=== PATIENT | male | born 1955 | race Caucasian/White ===

== ENCOUNTER 2017-09-10 19:56 | Inpatient (IN) | payer OTHER ==
[~2017-09-10] VITALS: Ht 182.9 cm; Wt 93.4 kg
[2017-09-10] MEDS ORDERED: METFORMIN PO (20:07)
[2017-09-10 20:08] VITALS: BP 139/94
[2017-09-10 20:54] LABS: HEMATOCRIT 43.5 % (42.0-52.0); HEMOGLOBIN 14.9 gm/dL (14.0-18.0); MCH 30.1 pg (26.0-34.0); MCHC 34.4 g/dL (28.0-37.0); MCV 87.7 fL (80.0-100.0); MPV 8.6 fl. (7.2-11.1); NUCLEATED RBCS 0 /100WBC; PLATELET COUNT* 202 thou/uL (150-400); RBC 4.96 mil/uL (4.50-6.00); RDW-CV 13.2 % (10.5-14.5); WBC 20.4 thou/uL (4.0-11.0)
[2017-09-10 20:56] LABS: CALCIUM 9.2 mg/dL (8.5-10.1); CREATININE 1.7 mg/dL (0.6-1.3); POTASSIUM 3.7 mmol/L (3.5-5.1)
[2017-09-10 21:01] LABS: ALBUMIN 4.2 g/dL (3.4-5.0); TOTAL BILIRUBIN 0.6 mg/dL (<0.1-1.0); TOTAL PROTEIN 7.2 g/dL (6.4-8.2)
[2017-09-10 21:11] LABS: URINE BILIRUBIN NEGATIVE (Negative); URINE BLOOD 3+ (Negative); URINE CLARITY CLEAR; URINE COLOR YELLOW; URINE GLUCOSE-RANDOM 1+ (Negative); URINE KETONES 2+ (Negative); URINE LEUKOCYTES-REFLEX NEGATIVE (Negative); URINE NITRITE-REFLEX NEGATIVE (Negative); URINE PROTEIN 2+ (Negative); URINE UROBILINOGEN 0.2 E.U./dl (0.2-1.0)
[2017-09-10 21:19] LABS: MUCUS 4-6 Moderate strn/LPF (None Seen); SQUAMOUS >10 Many /LPF (0-3)
[2017-09-10 21:20] LABS: CRYSTALS None Seen /LPF (None Seen); HYALINE CASTS 0-3 Few /LPF (None Seen); URINE RBC >20 Many /HPF (0-2)
[2017-09-10 21:21] LABS: BACTERIA-REFLEX None Seen /HPF (None Seen); URINE WBC-REFLEX 0-5 Rare /HPF (0-5)
[2017-09-10 21:27] LABS: INFLUENZA A ANTIGEN None Detected (None Detect); INFLUENZA B ANTIGEN None Detected (None Detect)
[2017-09-10 21:30] LABS: ABSOLUTE LYMPHOCYTES 1.6 thou/uL (0.8-5.3); ABSOLUTE MONOCYTES 0.8 thou/uL (0.0-1.2)
[2017-09-10 21:31] LABS: PLATELET ESTIMATE ADEQUATE
[2017-09-11 01:39] VITALS: BP 163/101
[2017-09-11 01:55] VITALS: BP 145/72
[2017-09-11 04:31] LABS: HEMATOCRIT 40.2 % (42.0-52.0); HEMOGLOBIN 13.7 gm/dL (14.0-18.0); MCV 88.1 fL (80.0-100.0); MPV 8.2 fl. (7.2-11.1); RBC 4.56 mil/uL (4.50-6.00); RDW-CV 13.2 % (10.5-14.5); WBC 15.7 thou/uL (4.0-11.0)
[2017-09-11 04:52] LABS: CALCIUM 8.4 mg/dL (8.5-10.1); CREATININE 1.8 mg/dL (0.6-1.3)
--- NOTE | 2017-09-11 08:14 | NUR ---
Pt arrived from ED to floor at 0200. Shortly after arrival, he c/o increasing pain to L flank rating 8/10. Medicated with fentanyl per order, and appeared to be asleep when checked on 30-45 minutes later. On clear liquid diet. States takes only Metformin and generic form of Lipitor at home. VSS. Will continue to monitor.
[2017-09-11 08:56] LABS: HEMATOCRIT 39.7 % (42.0-52.0); HEMOGLOBIN 13.6 gm/dL (14.0-18.0)
[2017-09-11 09:30] VITALS: BP 129/73
[2017-09-11 11:36] VITALS: BP 143/80
[2017-09-11 15:13] LABS: HEMOGLOBIN 13.2 gm/dL (14.0-18.0)
[2017-09-11 16:42] VITALS: BP 131/79
--- NOTE | 2017-09-11 18:00 | NUR ---
ASSUMED CARES OF PT AT 0700. PT IN BED ASLEEPK, BED IN LOW AND LOCKED POSITION, FALL PRECAUTIONS IN PLACE. CALL BUTTON AND PERSONAL ITEMS IN REACH. PT FELL AT WORK HERE/[employer] [place], SEVERE PAIN IN LEFT FLANK. A&O X4, HARVESTER OPERATOR TRACING NSR. BEDREST, USES URINAL. BEDPAN. VSS ON RA, AFEBRILE, PERRLA, SKIN INTACT, NO EDEMA. REFUSES SCD'S, LEFT 20 G AC IV RECEIVING FLUIDS, NS 120 ML/HR. PT OCC HAS N/V EPISODES. ACCU CHECK. HOURLY ROUNDS CONTINUE. WILL CONTINUE TO MONITOR PT PROGRESS AND STATUS/PAIN LEVELS.
[2017-09-11 20:00] VITALS: BP 150/77
--- NOTE | 2017-09-11 20:00 | NUR ---
RECEIVED REPORT AND ASSUMED CARE OF PT, ASSESSMENT COMPLETED. PT AMBULATED TO BR WITH SLOW STEADY GAIT. CONT TO HAVE PAIN TO LT FLANK AREA WITH MOVEMENT. STATES NO DIFFICULTY WITH URINATION OR NOTED BLOOD. REQUESTING NO PAIN MEDS AT THIS TIME. TELEMETRY SHOWING SR. WILL CONT TO MONITOR AND ASSIST NEEDED.
[2017-09-11 20:31] LABS: HEMATOCRIT 39.4 % (42.0-52.0); HEMOGLOBIN 13.5 gm/dL (14.0-18.0)
--- NOTE | 2017-09-11 21:27 | NUR ---
REPORT TO QUARTZ CUTTER FOR CONTINUED CARES. PT REMAINS STABLE, PAIN MANAGED WITH MEDICATIONS, IV FLUIDS INFUSING, NO AVR. VSS ON RA. HOURLY ROUNDING AND ACCU CHECKS COMPLETED. PT RESTING IN BED, STATES HE IS COMFORTABLE AT THIS TIME, PAIN TOLERABLE LEVEL. WAITING ON FAMILY TO PROVIDE MEDICATION DOSE ON METFORMIN AND LIPITOR PER HOME. PT RESPONDED WELL TO PERCOCET FOR PAIN CONTROL. UP WITH 1-2 SBA TO MONITOR FOR FALL RISKS. CONSULTED UROLOGY AND HIMS. ASSESSMENTS AND DOCUMENTATION COMPLETED.
[2017-09-12] VITALS (7 sets, daily range): BP systolic 124–154; BP diastolic 58–82
[2017-09-12 03:06] LABS: HEMATOCRIT 37.5 % (42.0-52.0); HEMOGLOBIN 12.9 gm/dL (14.0-18.0); MCH 30.3 pg (26.0-34.0); MCHC 34.4 g/dL (28.0-37.0); MPV 8.1 fl. (7.2-11.1); RBC 4.27 mil/uL (4.50-6.00); RDW-CV 13.1 % (10.5-14.5)
[2017-09-12 03:26] LABS: CALCIUM 8.3 mg/dL (8.5-10.1); CREATININE 1.9 mg/dL (0.6-1.3); MAGNESIUM 1.9 mg/dL (1.8-2.4); POTASSIUM 4.4 mmol/L (3.5-5.1)
--- NOTE | 2017-09-12 07:17 | NUR ---
SLEPT WELL TONIGHT. ASSISTED TO BR WITH SLOW BUT STEADY GAIT. C/O PAIN TO LT FLANK AREA WITH MOVEMENT, NO PAIN MED REQUESTED. CONT TO VOID WITHOUT DIFFICULTY, BLADDER SCAN X1 FOR NO RESIDUAL. TELEMETRY CONT TO SHOW SR. NO CHANGE IN ASSESSMENT. ADVANCING TOWARDS DISCHARGE GOAL. HOURLY ROUNDING OBSERVED.
[2017-09-12 08:57] LABS: HEMATOCRIT 38.4 % (42.0-52.0); HEMOGLOBIN 13.2 gm/dL (14.0-18.0)
--- NOTE | 2017-09-12 12:30 | NUR ---
PATIENT REQUESTS VISIT TO ER TO SEE WHO IS BEING SEEN IN THE ER DEPT NOTIFIED AND REQUEST GRANTED PCT ACCOMPANIED PATIENT IN WC TO ER AND RETURNED TO SHORT TIME LATER
[2017-09-12 15:00] LABS: HEMATOCRIT 37.1 % (42.0-52.0); HEMOGLOBIN 12.8 gm/dL (14.0-18.0)
--- NOTE | 2017-09-12 15:24 | NUR ---
CHANGE OF SHIFT, BEDSIDE REPORT GIVEN ASSUMED PATIENT CARE SEEN AT BEDSIDE, NO REQUESTS
--- NOTE | 2017-09-12 20:00 | NUR ---
RECEIVED REPORT AND ASSUMED CARE OF PT, ASSESSMENT COMPLETED. PT QUIET, FLAT AFFECT AND NOT VOLUNTEERING CONVERSATION. WAS ADMITTED TO HOSPITAL PT AND HE IS CONCERNED ABOUT CARE. DEPRESSED THAT HE IS NOT ABLE TO TAKE CARE OF HER AT THIS TIME. REASSURANCE GIVEN. WILL TAKE PT TO HIS FOR A VISIT PER W/C. CONT TO C/O LT FLANK PAIN, WILL GIVE PO MEDS. NO DIFFICULTY WITH URINATION. TELEMETRY ON SHOWING SR. WILL CONT TO MONITOR AND ASSIST NEEDED.
--- NOTE | 2017-09-12 20:09 | NUR ---
PATIENT LAYING IN BED AND VISISTING WITH FAMILY REMAINS A AND O X 4 NSR LUNGS CTA/RA PO ADEQUATE TODAY LAST BM T-2 URINE OUTPUT ADEQUATE UP WITH STANDBY ASSIST TO BATHROOM NEW IV PLACED TO DAY, 22 GA IN L H, SL FRQUENT C/O OF L FLANK PAIN TODAY TREATED WITH FENTANYL 50MCG IVP WITH SOME RELIEF ACCUCHECKS 141/160/144 ABN LABS WBC, 14, CR 1.9 CALL LIGHT INSTRUCTION GIVEN AND FOLLOWED AND AT BEDSIDE
[2017-09-13 04:00] VITALS: BP 106/68
[2017-09-13 04:49] LABS: CALCIUM 8.4 mg/dL (8.5-10.1); CREATININE 1.9 mg/dL (0.6-1.3); HEMATOCRIT 34.5 % (42.0-52.0); HEMOGLOBIN 12.1 gm/dL (14.0-18.0); MAGNESIUM 2.4 mg/dL (1.8-2.4); MCH 30.6 pg (26.0-34.0); MCV 87.4 fL (80.0-100.0); MPV 8.4 fl. (7.2-11.1); RBC 3.95 mil/uL (4.50-6.00); RDW-CV 12.9 % (10.5-14.5); WBC 11.8 thou/uL (4.0-11.0)
--- NOTE | 2017-09-13 06:04 | NUR ---
C/O ITCHING TO BRETT ARMS AND ABD, NO RASH NOTED. PO BENADRYL GIVEN, SLEPT AFTER THIS. AMBULATES TO BR SLOWLY BUT STEADY. TELEMETRY SHOWING SR. HOURLY ROUNDING OBSERVED. ADVANCING TOWARDS GOALS.
--- NOTE | 2017-09-13 07:20 | NUR ---
CHANGE OF SHIFT, BEDSIDE REPORT GIVEN ASSUMED PATIENT CARE PATIENT SEEN IN BED AND RESTING, NO REQUESTS AT THIS TIME
[2017-09-13 08:00] VITALS: BP 133/69
[2017-09-13 11:30] VITALS: BP 127/75
--- NOTE | 2017-09-13 13:35 | NUR ---
MET WITH PT TO DISCUSS HOME SITUATION/DC PLANNING. PT LIVES WITH AND DTR. IS CURRENTLY HOSPITALIZED ALSO. PT IS INDEPENDENT AND ACTIVE, WORKS AND USES NO EQUIPMENT. HE PLANS TO RETURN HOME AT DC. DENIES NEEDS AT THIS TIME. WILL FOLLOW
[2017-09-13 16:00] VITALS: BP 125/74
--- NOTE | 2017-09-13 19:30 | NUR ---
PATIENT REMAINS A AND O X 4 NSR TODAY, NOW MS STATUS LUNGS CTA/DIM/RA O2 SATS MID TO HIGH 90S GOOD ORAL INTAKE ADEQUATE URINE OUTPUT NO BM TODAY UP WITH STANDBY TO BATHROOM, SCDS BLE WHILE IN BED C/O PAIN L FLANK RELIEVED WITH PERCOCET PO PRN IV R HAND IVF NS AT 100CC/HR STARTED TODAY X 1 L UROOLGY SEEN TODAY AND OKAYED DC AFTER RESULTS OF CT NO PAIN MEDICATION RX AVAILABLE FOR HOME TOOL DESIGN ENGINEER ORDERED TO HOME DC UNTIL AM CALL LIGHT IN REACH AND INSTRUCTION GIVEN AND FOLLOWED
[2017-09-13 20:00] VITALS: BP 135/61
[2017-09-14 05:14] LABS: HEMATOCRIT 33.3 % (42.0-52.0); HEMOGLOBIN 11.7 gm/dL (14.0-18.0); MCH 30.6 pg (26.0-34.0); MCHC 35.1 g/dL (28.0-37.0); MCV 87.1 fL (80.0-100.0); MPV 8.5 fl. (7.2-11.1); RBC 3.82 mil/uL (4.50-6.00); RDW-CV 12.9 % (10.5-14.5); WBC 9.3 thou/uL (4.0-11.0)
--- NOTE | 2017-09-14 05:44 | NUR ---
PATIENT ALERT AND ORIENTED TIMES FOUR. WENT TO VISIT HIS , ON 3W, LAST NIGHT FOR A BIT. MINOR COMPLAINTS OF PAIN, CONTROLLED WITH ORAL MEDICATION. IV PATENT TO FLUSHES. NURSING ASSESSMENT AND HOURLY ROUNDING OCOMPLETED DOCUMENTED. IS ANXIOUSLY AWAITING DISCHARGE. SCRIPTS NEEDED.
[2017-09-14 05:58] LABS: CALCIUM 8.4 mg/dL (8.5-10.1); CREATININE 1.8 mg/dL (0.6-1.3); MAGNESIUM 2.3 mg/dL (1.8-2.4); POTASSIUM 3.8 mmol/L (3.5-5.1)
[2017-09-14 08:00] VITALS: BP 136/69
--- NOTE | 2017-09-14 08:00 | NUR ---
AM ASSESSEMENT COMPLETE, DEFER TO COMPUTER CHARTING. REPORTING HAVING LEFT FLANK PAIN, DENIES NAUSEA OR ANY OTHER DISCOMFORT AT THIS TIME. WILL GIVEN REPEAT PO PAIN MEDICATION AND CONTINUE TO MONITOR.
[2017-09-14 11:30] VITALS: BP 113/52
[2017-09-14 11:40] VITALS: BP 136/69
[2017-09-14] MEDS ORDERED: PERCOCET 5-3251 EACH PO (11:55)
== END 2017-09-14 13:25 | disposition home or self-care (01) | DRG 699 ==
LOC: M.ERS 19:56 → M.TBA-ER 09-11 00:45 → M.2W 09-11 00:45
PROVIDERS: Emergency Medicine; Internal Medicine; Physician Assistant; ADMIT Internal Medicine
DX: S37.012A Minor contusion of left kidney, initial encounter (principal); N17.9 Acute kidney failure, unspecified; E87.5 Hyperkalemia; N18.9 Chronic kidney disease, unspecified; E11.22 Type 2 diabetes mellitus with diabetic chronic kidney disease; Z88.6 Allergy status to analgesic agent; W19.XXXA Unspecified fall, initial encounter; Y93.89 Activity, other specified; Y92.89 Other specified places as the place of occurrence of the external cause; Y99.8 Other external cause status

== ENCOUNTER → 2017-09-20 | Outpatient (CLI) | payer OTHER ==
[~2017-09-20] MED LIST: METFORMIN PO; PERCOCET 5-3251 EACH PO
[2017-09-20 12:34] LABS: HEMATOCRIT 37.8 % (42.0-52.0); HEMOGLOBIN 13.1 gm/dL (14.0-18.0); MCHC 34.6 g/dL (28.0-37.0); MCV 86.8 fL (80.0-100.0); MPV 7.1 fl. (7.2-11.1); NUCLEATED RBCS 0 /100WBC; PLATELET COUNT* 357 thou/uL (150-400); RBC 4.35 mil/uL (4.50-6.00); RDW-CV 12.8 % (10.5-14.5); WBC 10.4 thou/uL (4.0-11.0)
[2017-09-20 12:49] LABS: CALCIUM 8.7 mg/dL (8.5-10.1); CREATININE 1.9 mg/dL (0.6-1.3); POTASSIUM 3.9 mmol/L (3.5-5.1)
[2017-09-20 13:25] LABS: ABSOLUTE EOSINOPHILS 0.2 thou/uL (0.0-0.7); ABSOLUTE LYMPHOCYTES 0.8 thou/uL (0.8-5.3); ABSOLUTE MONOCYTES 0.5 thou/uL (0.0-1.2); ABSOLUTE NEUTROPHILS 8.8 thou/uL (1.6-8.1)
[2017-09-20 13:26] LABS: PLATELET ESTIMATE ADEQUATE
== END ==
LOC: M.LAB 12:14
PROVIDERS: Urology
DX: S37.019A Minor contusion of unspecified kidney, initial encounter (principal); X58.XXXA Exposure to other specified factors, initial encounter; Y93.89 Activity, other specified; Y92.89 Other specified places as the place of occurrence of the external cause; Y99.8 Other external cause status

== ENCOUNTER → 2017-10-10 | Outpatient (CLI) | payer OTHER ==
[2017-10-10 06:57] LABS: ABSOLUTE EOSINOPHILS 0.2 thou/uL (0.0-0.7); ABSOLUTE LYMPHOCYTES 1.1 thou/uL (0.8-5.3); ABSOLUTE MONOCYTES 0.6 thou/uL (0.0-1.2); BASOPHILS 0.4 %; EOSINOPHILS 2.7 %; HEMATOCRIT 37.4 % (42.0-52.0); HEMOGLOBIN 12.7 gm/dL (14.0-18.0); LYMPHOCYTES 16.3 %; MCH 29.6 pg (26.0-34.0); MPV 7.8 fl. (7.2-11.1); NUCLEATED RBCS 0 /100WBC; PLATELET COUNT* 192 thou/uL (150-400); POLYS 71.6 %; RDW-CV 13.4 % (10.5-14.5); WBC 6.9 thou/uL (4.0-11.0)
[2017-10-10 07:06] LABS: CALCIUM 8.9 mg/dL (8.5-10.1); CREATININE 1.6 mg/dL (0.6-1.3); POTASSIUM 3.9 mmol/L (3.5-5.1)
== END ==
LOC: M.CT 06:29
PROVIDERS: Urology
DX: S37.012A Minor contusion of left kidney, initial encounter (principal); X58.XXXA Exposure to other specified factors, initial encounter; Y93.89 Activity, other specified; Y92.89 Other specified places as the place of occurrence of the external cause; Y99.8 Other external cause status

== ENCOUNTER → 2017-12-04 | Outpatient (CLI) | payer OTHER ==
[2017-12-04 10:36] LABS: ABSOLUTE EOSINOPHILS 0.2 thou/uL (0.0-0.7); ABSOLUTE LYMPHOCYTES 1.7 thou/uL (0.8-5.3); ABSOLUTE MONOCYTES 0.7 thou/uL (0.0-1.2); ABSOLUTE NEUTROPHILS 6.4 thou/uL (1.6-8.1); BASOPHILS 0.4 %; EOSINOPHILS 1.9 %; HEMATOCRIT 41.6 % (42.0-52.0); HEMOGLOBIN 14.1 gm/dL (14.0-18.0); LYMPHOCYTES 18.6 %; MCH 29.5 pg (26.0-34.0); MCHC 33.8 g/dL (28.0-37.0); MCV 87.3 fL (80.0-100.0); MONOCYTES 7.6 %; NUCLEATED RBCS 0 /100WBC; PLATELET COUNT* 190 thou/uL (150-400); POLYS 71.5 %; RBC 4.76 mil/uL (4.50-6.00); WBC 8.9 thou/uL (4.0-11.0)
[2017-12-04 10:49] LABS: ALBUMIN 3.7 g/dL (3.4-5.0); ALKALINE PHOSPHATASE 100 U/L (46-116); ANION GAP 9 mmol/L (7-16); BUN 16 mg/dL (7-18); CALCIUM 8.8 mg/dL (8.5-10.1); CHLORIDE 105 mmol/L (98-107); CHOLESTEROL 145 mg/dL (<200); CO2 28 mmol/L (21-32); CREATININE 1.7 mg/dL (0.6-1.3); GLUCOSE 115 mg/dL (70-99); HDL CHOLESTEROL 49 mg/dL (>40); LDL CHOLESTEROL 81 mg/dL (<100); POTASSIUM 4.4 mmol/L (3.5-5.1); SGOT 19 U/L (15-37); SGPT 27 U/L (30-65); SODIUM 142 mmol/L (136-145); TOTAL BILIRUBIN 0.5 mg/dL (<0.1-1.0); TRIGLYCERIDE 77 mg/dL (<150); VLDL 15 mg/dL (<40)
[2017-12-04 10:50] LABS: SERUM ASSESSMENT Clear
[2017-12-05 06:05] LABS: GLYCOHEMOGLOBIN (HGB A1C) 5.7 % (4.8-5.6)
== END ==
LOC: M.LAB 10:16
PROVIDERS: Family Medicine
DX: E11.9 Type 2 diabetes mellitus without complications (principal); E78.5 Hyperlipidemia, unspecified

== ENCOUNTER → 2018-01-10 | Outpatient (CLI) | payer OTHER | LOC: M.ULTRA 14:41 | DX: S37.019D Minor contusion of unspecified kidney, subsequent encounter (principal); N28.9 Disorder of kidney and ureter, unspecified; X58.XXXD Exposure to other specified factors, subsequent encounter ==

== ENCOUNTER → 2018-06-05 | Outpatient (CLI) | payer OTHER ==
[2018-06-05 09:11] LABS: ABSOLUTE EOSINOPHILS 0.1 thou/uL (0.0-0.7); ABSOLUTE LYMPHOCYTES 1.7 thou/uL (0.8-5.3); ABSOLUTE MONOCYTES 0.7 thou/uL (0.0-1.2); ABSOLUTE NEUTROPHILS 6.6 thou/uL (1.6-8.1); BASOPHILS 0.2 %; EOSINOPHILS 1.5 %; HEMATOCRIT 41.5 % (42.0-52.0); HEMOGLOBIN 14.3 gm/dL (14.0-18.0); LYMPHOCYTES 18.6 %; MCH 30.7 pg (26.0-34.0); MCHC 34.4 g/dL (28.0-37.0); MCV 89.4 fL (80.0-100.0); MONOCYTES 7.3 %; MPV 8.3 fl. (7.2-11.1); NUCLEATED RBCS 0 /100WBC; PLATELET COUNT* 183 thou/uL (150-400); POLYS 72.4 %; RBC 4.65 mil/uL (4.50-6.00); RDW-CV 13.2 % (10.5-14.5); WBC 9.1 thou/uL (4.0-11.0)
[2018-06-05 09:39] LABS: ALBUMIN 3.9 g/dL (3.4-5.0); ALKALINE PHOSPHATASE 88 U/L (46-116); ANION GAP 11 mmol/L (7-16); BUN 13 mg/dL (7-18); CALCIUM 8.7 mg/dL (8.5-10.1); CHLORIDE 105 mmol/L (98-107); CHOLESTEROL 136 mg/dL (<200); CO2 26 mmol/L (21-32); CREATININE 1.7 mg/dL (0.6-1.3); GLUCOSE 129 mg/dL (70-99); HDL CHOLESTEROL 45 mg/dL (>40); LDL CHOLESTEROL 73 mg/dL (<100); POTASSIUM 3.9 mmol/L (3.5-5.1); SGOT 22 U/L (15-37); SGPT 26 U/L (30-65); SODIUM 142 mmol/L (136-145); TOTAL BILIRUBIN 0.7 mg/dL (<0.1-1.0); TRIGLYCERIDE 90 mg/dL (<150); VLDL 18 mg/dL (<40)
[2018-06-05 09:42] LABS: SERUM ASSESSMENT Clear
[2018-06-06 02:11] LABS: GLYCOHEMOGLOBIN (HGB A1C) 5.8 % (4.8-5.6)
== END ==
LOC: M.LAB 08:55
PROVIDERS: Family Medicine
DX: E11.9 Type 2 diabetes mellitus without complications (principal); E78.5 Hyperlipidemia, unspecified

== ENCOUNTER 2018-10-25 02:30 | Emergency (ER) | payer OTHER ==
[~2018-10-25] VITALS: Ht 182.9 cm; Wt 83.9 kg
[2018-10-25] MEDS ORDERED: ASPIR 8181 MG PO (02:43)
[2018-10-25] MEDS ORDERED: LIPITOR10 MG PO (02:43)
[2018-10-25 03:49] VITALS: BP 126/71
== END 2018-10-25 03:49 | disposition home or self-care (01) ==
LOC: M.ERS 02:30
DX: S01.21XA Laceration without foreign body of nose, initial encounter (principal); Z88.5 Allergy status to narcotic agent; Z88.6 Allergy status to analgesic agent; E11.9 Type 2 diabetes mellitus without complications; W01.0XXA Fall on same level from slipping, tripping and stumbling without subsequent striking against object, initial encounter; Y93.89 Activity, other specified; Y92.89 Other specified places as the place of occurrence of the external cause; Y99.8 Other external cause status

== ENCOUNTER → 2019-01-20 | Outpatient (CLI) | payer OTHER ==
[~2019-01-20] MED LIST changes: +ASPIR 8181 MG PO; +LIPITOR10 MG PO
[2019-01-20 10:12] LABS: ABSOLUTE EOSINOPHILS 0.2 thou/uL (0.0-0.7); ABSOLUTE LYMPHOCYTES 1.9 thou/uL (0.8-5.3); ABSOLUTE MONOCYTES 0.7 thou/uL (0.0-1.2); ABSOLUTE NEUTROPHILS 5.6 thou/uL (1.6-8.1); BASOPHILS 0.5 %; EOSINOPHILS 2.9 %; HEMATOCRIT 42.3 % (42.0-52.0); HEMOGLOBIN 14.6 gm/dL (14.0-18.0); LYMPHOCYTES 22.4 %; MCH 30.7 pg (26.0-34.0); MCHC 34.6 g/dL (28.0-37.0); MCV 88.6 fL (80.0-100.0); MONOCYTES 8.5 %; MPV 8.1 fl. (7.2-11.1); NUCLEATED RBCS 0 /100WBC; PLATELET COUNT* 209 thou/uL (150-400); POLYS 65.7 %; RBC 4.77 mil/uL (4.50-6.00); RDW-CV 13.1 % (10.5-14.5); WBC 8.5 thou/uL (4.0-11.0)
[2019-01-20 10:24] LABS: ALBUMIN 3.9 g/dL (3.4-5.0); ALKALINE PHOSPHATASE 93 U/L (46-116); ANION GAP 7 mmol/L (7-16); BUN 17 mg/dL (7-18); CALCIUM 8.8 mg/dL (8.5-10.1); CHLORIDE 105 mmol/L (98-107); CHOLESTEROL 205 mg/dL (<200); CO2 30 mmol/L (21-32); CREATININE 1.6 mg/dL (0.6-1.3); GLUCOSE 128 mg/dL (70-99); HDL CHOLESTEROL 41 mg/dL (>40); LDL CHOLESTEROL 139 mg/dL (<100); POTASSIUM 4.1 mmol/L (3.5-5.1); SERUM ASSESSMENT Clear; SGOT 18 U/L (15-37); SGPT 28 U/L (30-65); SODIUM 142 mmol/L (136-145); TOTAL BILIRUBIN 0.6 mg/dL (<0.1-1.0); TOTAL PROTEIN 7.3 g/dL (6.4-8.2); TRIGLYCERIDE 127 mg/dL (<150); VLDL 25 mg/dL (<40)
[2019-01-20 21:10] LABS: TESTOSTERONE 887 ng/dL (264-916)
[2019-01-20 23:06] LABS: GLYCOHEMOGLOBIN (HGB A1C) 6.3 % (4.8-5.6)
== END ==
LOC: M.LAB 09:50
PROVIDERS: Internal Medicine
DX: E11.9 Type 2 diabetes mellitus without complications (principal); E78.2 Mixed hyperlipidemia; R53.83 Other fatigue; N52.9 Male erectile dysfunction, unspecified; Z79.4 Long term (current) use of insulin; Z79.899 Other long term (current) drug therapy

== ENCOUNTER → 2019-02-04 | Outpatient (CLI) | payer OTHER ==
--- NOTE | 2019-02-05 22:35 | SLEEP ---
[address] [address] SLEEP STUDY REPORT Name: PAGE PIERREREY Room: [facility]#: [id number] Admission: 02/04/19 Attend Phys: Miya Bishop MD Discharge: Date of : 55 Report #: [id number] THIS REPORT FOR: //name// CC: Miya Bishop MD This study has been reviewed in its entirety by a board certified sleep specialist DATE OF SERVICE: 02/04/2019 REFERRING PHYSICIAN: Miya Bishop MD. The patient is a 63-year-old who weighs 200 pounds with a BMI of 27.1. The patient underwent split night study performed at [facility]. During the night of the study, the patient spent 370 minutes in bed and slept for 246 minutes with low sleep efficiency of 66%. Sleep latency was 47 minutes, which is prolonged with a REM latency of 127 minutes. Overall, sleep architecture showed increased stage 1 and stage 2 sleep, normal N3 sleep and reduced REM sleep. During the initial diagnostic portion of the study, the patient slept for 119 minutes. During that time, the patient had 1 obstructive apnea, no mixed or central apneas and there were 23 hypopneas. The patient's apnea hypopnea index was 12 per hour with a REM index of 44 per hour and a supine index of 12 per hour. EKG monitoring revealed an average heart rate of 64 beats per minute. No sustained arrhythmias observed. No PLMs observed. Nocturnal oximetry study revealed an average oxygen saturation of 94% with the lowest of 79%. Only 1.7 minutes were spent in oxygen saturation of less than 89%. The patient met the criteria for CPAP initiation. It was started at 5 cm of water and titrated up to 14 cm of water. Due to persistent respiratory events, the patient was then switched to BiPAP starting at a pressure of 18/14 and at a final pressure of 20/15, the patient slept for 29 minutes. The patient had a supine sleep, but no REM sleep. The patient's AHI was reduced to 2.1 per hour and oxygen saturation remained above 94%. IMPRESSION: 1. Mild sleep apnea-hypopnea syndrome with worsening [place] [address] SLEEP STUDY REPORT Name: PAGE PIERRE Room: [facility]#: [id number] Admission: 02/04/19 Attend Phys: Miya Bishop MD Discharge: Date of : 55 Report #: [id number] sleep. Total apnea hypopnea index of 12.1 per hour with a rapid eye movement apnea hypopnea index of 44 per hour. 2. Mild nocturnal hypoxia secondary to obstructive sleep apnea, but resolved with BiPAP. 3. No clinically significant periodic limb movements. RECOMMENDATIONS: 1. BiPAP at a pressure of 20/15 completely eliminated the patient's sleep apnea and should be used on a nightly basis. It should be noted that REM sleep was not observed at this pressure. 2. Follow up in 4-6 weeks to assess compliance with BiPAP and to document clinical improvement. I would also recommend review of the download data to make sure AHI remains less than 5 per hour. 3. Avoid SPARE PARTS CLERK depressants. 4. Weight loss is advised. 5. Cautioned regarding driving until symptoms of sleep apnea resolve with the use of BiPAP. <ELECTRONICALLY SIGNED> By: Orlando Johnson MD 02/05/19 2235 1401 1425Aesperanza Johnson MD /nt
== END ==
LOC: M.SLEEPLAB 21:00
DX: G47.33 Obstructive sleep apnea (adult) (pediatric) (principal); R09.02 Hypoxemia; E11.9 Type 2 diabetes mellitus without complications; E78.2 Mixed hyperlipidemia; R53.83 Other fatigue; N52.9 Male erectile dysfunction, unspecified; Z79.4 Long term (current) use of insulin; Z68.30 Body mass index [BMI] 30.0-30.9, adult; Z79.899 Other long term (current) drug therapy

== ENCOUNTER → 2019-05-22 | Outpatient (CLI) | payer OTHER ==
[2019-05-22 10:16] LABS: CALCIUM 8.7 mg/dL (8.5-10.1); CREATININE 1.6 mg/dL (0.6-1.3)
[2019-05-23 02:06] LABS: GLYCOHEMOGLOBIN (HGB A1C) 5.8 % (4.8-5.6)
== END ==
LOC: M.LAB 09:47
PROVIDERS: Internal Medicine
DX: E11.22 Type 2 diabetes mellitus with diabetic chronic kidney disease (principal); N18.2 Chronic kidney disease, stage 2 (mild)

== ENCOUNTER → 2019-07-24 | Outpatient (CLI) | payer OTHER | LOC: M.RAD 11:12 | DX: M41.82 Other forms of scoliosis, cervical region (principal); M50.821 Other cervical disc disorders at C4-C5 level ==

== ENCOUNTER → 2020-05-26 | Outpatient (CLI) | payer OTHER ==
[2020-05-26 12:48] LABS: ABSOLUTE EOSINOPHILS 0.1 thou/uL (0.0-0.7); ABSOLUTE LYMPHOCYTES 1.3 thou/uL (0.8-5.3); ABSOLUTE MONOCYTES 0.6 thou/uL (0.0-1.2); ABSOLUTE NEUTROPHILS 6.1 thou/uL (1.6-8.1); BASOPHILS 0.4 %; EOSINOPHILS 0.9 %; HEMATOCRIT 41.5 % (42.0-52.0); HEMOGLOBIN 14.6 gm/dL (14.0-18.0); LYMPHOCYTES 16.2 %; MCH 30.9 pg (26.0-34.0); MCV 88.2 fL (80.0-100.0); NUCLEATED RBCS 0 /100WBC; PLATELET COUNT* 196 thou/uL (150-400); POLYS 75.5 %; RBC 4.71 mil/uL (4.50-6.00); RDW-CV 13.1 % (10.5-14.5); WBC 8.1 thou/uL (4.0-11.0)
[2020-05-26 12:58] LABS: ALBUMIN 3.8 g/dL (3.4-5.0); ALKALINE PHOSPHATASE 76 U/L (46-116); ANION GAP 8 mmol/L (7-16); BUN 9 mg/dL (7-18); CALCIUM 8.7 mg/dL (8.5-10.1); CHLORIDE 106 mmol/L (98-107); CHOLESTEROL 85 mg/dL (<200); CO2 28 mmol/L (21-32); CREATININE 1.7 mg/dL (0.6-1.3); GLUCOSE 95 mg/dL (70-99); HDL CHOLESTEROL 49 mg/dL (>40); LDL CHOLESTEROL 25 mg/dL (<100); POTASSIUM 4.1 mmol/L (3.5-5.1); SERUM ASSESSMENT Clear; SGOT 21 U/L (15-37); SGPT 34 U/L (30-65); SODIUM 142 mmol/L (136-145); TC:HDL 1.7 Ratio (Not establshd); TOTAL BILIRUBIN 0.8 mg/dL (<0.1-1.0); TOTAL PROTEIN 6.6 g/dL (6.4-8.2); TRIGLYCERIDE 55 mg/dL (<150); VLDL 11 mg/dL (<40)
[2020-05-27 02:06] LABS: GLYCOHEMOGLOBIN (HGB A1C) 5.6 % (4.8-5.6)
[2020-05-27 15:07] LABS: % FREE PSA 36.2 % (()); FREE PSA 0.47 ng/mL
== END ==
LOC: M.LAB 12:25
PROVIDERS: ATTEND Internal Medicine
DX: Z12.5 Encounter for screening for malignant neoplasm of prostate (principal); E78.2 Mixed hyperlipidemia; E11.9 Type 2 diabetes mellitus without complications; Z79.899 Other long term (current) drug therapy

== ENCOUNTER 2020-07-25 12:45 | Inpatient (IN) | payer OTHER ==
[~2020-07-25] VITALS: Ht 182.9 cm; Wt 78.9 kg
[2020-07-25 13:08] VITALS: BP 121/76
[2020-07-25 13:31] LABS: BE -2.7 mmol/L (-2 to +3); PCO2 27.2 mmHg (35.0-45.0); pH 7.471 (7.340-7.450)
[2020-07-25 14:07] LABS: ABSOLUTE EOSINOPHILS 0.1 thou/uL (0.0-0.7); ABSOLUTE LYMPHOCYTES 0.9 thou/uL (0.8-5.3); ABSOLUTE MONOCYTES 0.8 thou/uL (0.0-1.2); ABSOLUTE NEUTROPHILS 9.6 thou/uL (1.6-8.1); BASOPHILS 0.4 %; EOSINOPHILS 0.8 %; HEMATOCRIT 37.7 % (42.0-52.0); HEMOGLOBIN 12.9 gm/dL (14.0-18.0); LYMPHOCYTES 7.9 %; MCH 29.9 pg (26.0-34.0); MCHC 34.2 g/dL (28.0-37.0); MCV 87.2 fL (80.0-100.0); MONOCYTES 7.4 %; MPV 6.7 fl. (7.2-11.1); NUCLEATED RBCS 0 /100WBC; PLATELET COUNT* 445 thou/uL (150-400); POLYS 83.5 %; RBC 4.32 mil/uL (4.50-6.00); RDW-CV 12.9 % (10.5-14.5); WBC 11.4 thou/uL (4.0-11.0)
[2020-07-25 14:13] LABS: CALCIUM 8.2 mg/dL (8.5-10.1); CREATININE 1.5 mg/dL (0.6-1.3); POTASSIUM 3.8 mmol/L (3.5-5.1)
[2020-07-25 14:18] LABS: ALBUMIN 2.2 g/dL (3.4-5.0); MAGNESIUM 2.1 mg/dL (1.8-2.4); TOTAL BILIRUBIN 0.6 mg/dL (<0.1-1.0); TOTAL PROTEIN 6.5 g/dL (6.4-8.2)
[2020-07-25 17:00] LABS: URINE BILIRUBIN NEGATIVE (Negative); URINE BLOOD NEGATIVE (Negative); URINE CLARITY CLEAR; URINE COLOR YELLOW; URINE GLUCOSE-RANDOM NEGATIVE (Negative); URINE KETONES NEGATIVE (Negative); URINE LEUKOCYTES-REFLEX NEGATIVE (Negative); URINE NITRITE-REFLEX NEGATIVE (Negative); URINE PROTEIN NEGATIVE (Negative); URINE SPECIFIC GRAVITY 1.015 (1.005-1.030)
[2020-07-25 17:35] VITALS: BP 118/71
[2020-07-25 17:53] VITALS: BP 118/65
[2020-07-25] MEDS ORDERED: METFORMIN HCL500 M3 PO (18:42)
--- NOTE | 2020-07-25 18:50 | NUR ---
RECEIVED REPORT FROM KARO IN ER. PT ARRIVED TO TELE FLOOR AROUND 1735. PT ORIENTED TO ROOM, BED AND CALL LIGHT. COMMUNICATES UNDERSTANDING. ADMISSION ASSESSMENT, HISTORY AND EDUCATION COMPLETED CHARTED. MEDS PER EMAR. ISOLATION MAINTAINED. NC PLACED AT 3L. PT CURRENTLY RESTING IN BED WATCHING TV. CALL LIGHT IS WITHIN REACH. HOURLY ROUNDING PERFORMED. FALL PRECAUTIONS IN PLACE.
[2020-07-26] VITALS: BP 94/57
[2020-07-26 04:00] VITALS: BP 97/62
--- NOTE | 2020-07-26 07:55 | NUR ---
ASSUMED CARE OF PATIENT THIS MORNING FROM NIGHT NURSE. PT IS DOING WELL WITH NO CO OF PAIN OR NAUSEA. HE WAS EDUCATED ON FALL SAFETY AND USING THE CALL LIGHT FOR ASSISTANCE. HIS BED IS IN THE LOWEST POSITION AND HIS CALL LIGHT IS IN REACH. WILL CONTINUE TO MONITOR.
[2020-07-26 08:00] VITALS: BP 109/70
--- NOTE | 2020-07-26 09:23 | NUR ---
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 CM WILL NOT COMPLETE ASSESSMENT WITH PT AT THIS TIME. HOWEVER CM WILL CONTINUE TO FOLLOW PT AND BE AVAILABLE TO ASSIST WITH D/C PLANNING. PT CURRENTLY COVID POSITITVE AND UNDER ENHANCED PRECAUTIONS. PT USING 3L O2 VIA NC, AND PER NURSING DOES NOT USE HOME OXYGEN. CM WILL REMAIN AVAILABLE TO ASSIST AND FOLLOW NEEDED.
[2020-07-26] MEDS ORDERED: ZETIA10 MG PO (11:19)
[2020-07-26 12:00] VITALS: BP 105/65
[2020-07-26 16:00] VITALS: BP 110/64
[2020-07-26 17:40] LABS: APTT 26.2 Seconds (25.0-31.3); INR 1.1; PROTIME 11.9 Seconds (9.20-11.50)
[2020-07-26 18:44] LABS: HEMATOCRIT 34.3 % (42.0-52.0); HEMOGLOBIN 11.7 gm/dL (14.0-18.0); MCH 29.6 pg (26.0-34.0); MCHC 34.1 g/dL (28.0-37.0); MCV 86.9 fL (80.0-100.0); MPV 7.2 fl. (7.2-11.1); RBC 3.95 mil/uL (4.50-6.00); WBC 15.3 thou/uL (4.0-11.0)
[2020-07-26 18:54] LABS: ALBUMIN 2.2 g/dL (3.4-5.0); CALCIUM 8.4 mg/dL (8.5-10.1); CREATININE 1.3 mg/dL (0.6-1.3); MAGNESIUM 2.2 mg/dL (1.8-2.4); POTASSIUM 4.4 mmol/L (3.5-5.1); TOTAL BILIRUBIN 0.4 mg/dL (<0.1-1.0); TOTAL PROTEIN 6.2 g/dL (6.4-8.2)
[2020-07-27] VITALS: BP 104/60
[2020-07-27 04:00] VITALS: BP 102/62
[2020-07-27 05:39] LABS: HEMATOCRIT 32.4 % (42.0-52.0); MCH 29.7 pg (26.0-34.0); MCHC 33.9 g/dL (28.0-37.0); MCV 87.7 fL (80.0-100.0); MPV 7.1 fl. (7.2-11.1); NUCLEATED RBCS 0 /100WBC; PLATELET COUNT* 388 thou/uL (150-400); RBC 3.69 mil/uL (4.50-6.00); RDW-CV 12.8 % (10.5-14.5); WBC 13.5 thou/uL (4.0-11.0)
[2020-07-27 05:52] LABS: CALCIUM 8.1 mg/dL (8.5-10.1); CREATININE 1.2 mg/dL (0.6-1.3); MAGNESIUM 2.2 mg/dL (1.8-2.4); POTASSIUM 4.6 mmol/L (3.5-5.1); TOTAL BILIRUBIN 0.3 mg/dL (<0.1-1.0); TOTAL PROTEIN 5.8 g/dL (6.4-8.2)
[2020-07-27 06:26] LABS: ABSOLUTE LYMPHOCYTES 0.5 thou/uL (0.8-5.3); PLATELET ESTIMATE ADEQUATE
--- NOTE | 2020-07-27 07:55 | NUR ---
ASSUMED CARE OF PATIENT THIS MORNING FROM NIGHT NURSE. PT IS DOING WELL WITH NO CO OF PAIN OR NAUSEA. HE WS EDUCATED ON POC, DISEASE PROCESS AND USING THE CALL LIGHT FOR ASSISTANCE. WILL CONTINUE TO MONITOR.
[2020-07-27 08:00] VITALS: BP 109/49
[2020-07-27 12:00] VITALS: BP 103/61
--- NOTE | 2020-07-27 12:57 | CON ---
[address] [address] CONSULTATION Name: PAGE PIERRE Room: [address] IN M.R.#: [id number] Admission: 07/25/20 Attend Phys: Billy Sylvester Discharge: Date of : 55 Report #: [id number] THIS REPORT FOR: //name// cc: Miya Bishop MD, Lin W. MD ~ DATE OF SERVICE: 07/26/2020 REQUESTING PHYSICIAN: Consult has been requested by Dr. Solorzano. INDICATION FOR CONSULTATION: COVID-19. HISTORY OF PRESENT ILLNESS: This is a 65-year-old gentleman. 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 He is a lifetime nonsmoker. He does have a history of diabetes and is reported to have a history of bronchial asthma as a child. Some of his symptoms also are consistent with into adulthood. His baseline creatinine is mildly elevated to around 1.3-1.5 shortness of breath as well as fatigue. He has had increased work of breathing and high respiratory rate, was evaluated in our Emergency Room and was found to be positive for COVID-19. He does have a cough. There is only small amounts of sputum production. REVIEW OF SYSTEMS: For 10 points is negative except as mentioned above. The patient has been needing about 3 liters of oxygen to maintain O2 saturation in the low 90s. PAST MEDICAL HISTORY: Bronchial asthma as a child. The patient is not aware of having asthma as an adult. His symptoms of some shortness of breath and cough on occasion long-term are consistent with him having bronchial asthma as an adult as well as diabetes, mild renal insufficiency, baseline creatinine 1.3-1.5. There is mention of hypertension on the record; however, his blood pressures have been recorded in the normal range without any antihypertensive medications listed for home use. SOCIAL HISTORY: Lifetime nonsmoker. No known history of heavy alcohol use or illegal drug use. CURRENT MEDICATIONS: List in [employer] reviewed. HOME MEDICATIONS: List in [employer] reviewed. FAMILY HISTORY: No pertinent family history. PHYSICAL EXAMINATION: GENERAL: Alert, awake and oriented. VITAL SIGNS: In the records reviewed. NECK: [place] [address] CONSULTATION Name: PAGE PIERRE Room: [address] IN [facility].#: [id number] Admission: 07/25/20 Attend Phys: Billy Sylvester Discharge: Date of : 55 Report #: [id number] CHEST: Breath sounds bilaterally equal, decreased, expirations prolonged. No added sounds. HEART: Regular, no murmur. ABDOMEN: Soft and nontender. EXTREMITIES: Lower extremities show no edema, no calf tenderness. SKIN: Dry and intact. NEUROLOGICAL: Moves all extremities bilaterally equally and spontaneously with no focal deficit identified. LABORATORY DATA: The patient's chest x-ray is reviewed and this shows bilateral infiltrates consistent with COVID-19. Lab work including a positive COVID-19 in [facility] [employer] reviewed. ASSESSMENT AND PLAN: 1. COVID-19, I agree with remdesivir as well as dexamethasone. I would go ahead and increase the dose of dexamethasone as I do feel there is a component of bronchospasm at this time as well. We will watch him closely. I will repeat a chest x-ray now as well if there is any deterioration in the patient's condition, I would have a very low threshold of giving him convalescent plasma and therefore did verbally obtain consent from him and I did obtain a type and screen. 2. Pulmonary infiltrates. I will also cover him for secondary bacterial infections with azithromycin and ceftriaxone. 3. Bronchial asthma exacerbation. It appears likely to me that the patient has had improvement in his asthma as an adult, but not complete resolution. We will increase dexamethasone as above. We will add albuterol. We will also add Singulair. He may need further evaluation in this regard after he recovers from COVID-19. 4. Chronic renal insufficiency. There is mild elevation in creatinine at his baseline. His current creatinine appears to be at or below his baseline. Therefore, I will be inclined to discontinue his IV fluids soon if his blood pressure remains within the normal range. 5. Diabetes. Recommend treating him with insulin as needed with increase in dexamethasone dose. 6. Deep venous thrombosis prophylaxis, Lovenox. 7. Evaluation for thromboembolic phenomena. His D-dimer is elevated. We would also do venous Dopplers. The patient appears to be high risk for administration of IV dye and therefore, I did not order the same at this time. 8. Clostridium difficile prophylaxis, Florastor. Thanks for this consultation. <ELECTRONICALLY SIGNED> By: Remberto Zendejas MD 07/27/20 1257 01 Arosalba Zendejas MD /nt
[2020-07-28] VITALS: BP 106/61
[2020-07-28 04:38] VITALS: BP 112/70
[2020-07-28 05:04] LABS: ABSOLUTE LYMPHOCYTES 0.8 thou/uL (0.8-5.3); ABSOLUTE MONOCYTES 0.4 thou/uL (0.0-1.2); ABSOLUTE NEUTROPHILS 13.1 thou/uL (1.6-8.1); BASOPHILS 0.1 %; HEMATOCRIT 34.3 % (42.0-52.0); HEMOGLOBIN 11.6 gm/dL (14.0-18.0); LYMPHOCYTES 5.5 %; MCH 29.8 pg (26.0-34.0); MCHC 33.8 g/dL (28.0-37.0); MONOCYTES 2.9 %; NUCLEATED RBCS 0 /100WBC; PLATELET COUNT* 406 thou/uL (150-400); POLYS 91.5 %; RBC 3.89 mil/uL (4.50-6.00); RDW-CV 12.6 % (10.5-14.5); WBC 14.4 thou/uL (4.0-11.0)
[2020-07-28 05:25] LABS: CALCIUM 8.4 mg/dL (8.5-10.1); CREATININE 1.4 mg/dL (0.6-1.3); MAGNESIUM 2.3 mg/dL (1.8-2.4); POTASSIUM 4.5 mmol/L (3.5-5.1)
[2020-07-28 08:00] VITALS: BP 128/65
--- NOTE | 2020-07-28 12:28 | NUR ---
CM INFORMED DURING PRIME ROUNDING OF THE PLAN OF CARE FOR THE PT INCLUDING PLAN FOR PT TO TO REMAIN ON I.V. ABT'S. PULM FOLLOWING AND PT REMAINS ON 3L O2. NO HOME O2 PRIOR TO ADMIT. CM WILL REMAIN AVAILABLE TO ASSIST WITH D/C PLANNING.
[2020-07-28 12:56] VITALS: BP 132/69
[2020-07-28 21:00] VITALS: BP 108/59
[2020-07-28 23:59] VITALS: BP 117/68
[2020-07-29 04:55] VITALS: BP 109/57
[2020-07-29 06:02] LABS: ABSOLUTE LYMPHOCYTES 0.7 thou/uL (0.8-5.3); ABSOLUTE MONOCYTES 0.3 thou/uL (0.0-1.2); ABSOLUTE NEUTROPHILS 10.7 thou/uL (1.6-8.1); HEMATOCRIT 33.1 % (42.0-52.0); HEMOGLOBIN 11.3 gm/dL (14.0-18.0); LYMPHOCYTES 6.2 %; MCH 29.9 pg (26.0-34.0); MCHC 34.1 g/dL (28.0-37.0); MCV 87.8 fL (80.0-100.0); MONOCYTES 2.9 %; NUCLEATED RBCS 0 /100WBC; PLATELET COUNT* 375 thou/uL (150-400); POLYS 90.9 %; RBC 3.77 mil/uL (4.50-6.00); RDW-CV 13.2 % (10.5-14.5); WBC 11.8 thou/uL (4.0-11.0)
[2020-07-29 06:16] LABS: ALBUMIN 2.3 g/dL (3.4-5.0); CALCIUM 8.2 mg/dL (8.5-10.1); CREATININE 1.3 mg/dL (0.6-1.3); MAGNESIUM 2.1 mg/dL (1.8-2.4); POTASSIUM 4.4 mmol/L (3.5-5.1); TOTAL BILIRUBIN 0.5 mg/dL (<0.1-1.0); TOTAL PROTEIN 5.8 g/dL (6.4-8.2)
[2020-07-29 07:50] VITALS: BP 110/65
--- NOTE | 2020-07-29 08:09 | NUR ---
ASSUMED PT'S CARE @ 1900. PT ALERT AND ORIENTED. VSS ON RA. MEDS GIVEN PER EMAR. PT COMPLAINED OF INDIGESTION THIS SHIFT. MYLANTA AND PROTONIX GIVEN AT HS AND THIS AM. PT VOICED INDIGESTION BETTER THIS AM. PT DID SEEM ANXIOUS LAST NIGHT. VOICING THAT HE COULDN'T GET COMFORTABLE. PT DENIED PAIN. CALL LIGHT WITHIN REACH. HOURLY ROUNDINGS MADE. WILL CONTINUE TO MONITOR.
[2020-07-29 13:31] VITALS: BP 120/68
--- NOTE | 2020-07-29 16:27 | NUR ---
PATIENT UP AD KAYLEE WITHOUT DIFFICULTY. IVF AND SCHED ABX INFUSED ORDERED. 2L NC IN PLACE. NO COMPLAINTS OF PAIN. INSULIN GIVEN WITH MEALS WHEN REQUIRED. SR ON GENERATION ENGINEERING TECHNOLOGIST.
[2020-07-29 17:36] VITALS: BP 109/63
[2020-07-30] VITALS: BP 102/66
[2020-07-30 04:00] VITALS: BP 113/59
--- NOTE | 2020-07-30 04:32 | NUR ---
PT RESTED WELL ALL EVENING. UP AD KAYLEE. HE STATED HE DID NOT FEEL WELL FEELING HOT THEN COLD HE WAS AFEBRILE EVERY CHECK. OFFERED FOOD, DRINK HE WAS NOT VERY HUNGRY. STATUS APPEARS TO BE IMPROVING. ROOM AIR, D/C'D FLUIDS. NON PRODUCTIVE COUGH IMPROVING. RECEIVED ALL MEDS SCHEDULED/
[2020-07-30 08:10] VITALS: BP 130/75
[2020-07-30 16:00] VITALS: BP 133/72
--- NOTE | 2020-07-30 20:20 | NUR ---
I ASSUMED CARE OF THE PATIENT AT 1100. HE IS ALERT AND ORIENTED X4 AND IS UP AD KAYLEE. HE HAS HOPES OF DISCHARGING TOMMORROW. BLOOD SUGAR IS MONITORED. ISOLATION IS MAINTAINED. HE HAD A BOWEL MOVEMENT TODAY AND HAD AN INDEPENDENT SHOWER AFTER LUNCH. SKIN IS C/D/I. BED IS IN THE LOW LOCKED POSITION AND CALL LIGHT IS IN REACH. HOURLY ROUNDING IS COMPLETED AND PATIENT NEEDS ARE MET.
[2020-07-30 23:00] VITALS: BP 106/46
[2020-07-31 04:00] VITALS: BP 97/40
[2020-07-31 07:30] VITALS: BP 101/51
[2020-07-31] MEDS ORDERED: FLORASTOR250 MG PO (10:25)
[2020-07-31] MEDS ORDERED: PREDNISONE 10 M10 MG PO (10:27)
[2020-07-31] MEDS ORDERED: CEFDINIR300 MG PO (10:28)
[2020-07-31 12:00] VITALS: BP 94/58
[2020-07-31 14:14] VITALS: BP 101/51
[2020-07-31 16:46] VITALS: BP 101/51
--- NOTE | 2020-07-31 16:48 | NUR ---
DISCHARGED TO HOME IN STABLE CONDITION. SALINE LOCK AND MID-LINE BOTH DC'D WITH CATH CANNULA INTACT. PRESSURE APPLIED UNTIL BLEEDING CEASED AND COTTON BALL AND BANDAID APPLIED. PT VERBALIZES UNDERSTANDING TO ALL DISCHARGE INSTRUCTIONS. PT COULD NOT FIND HIS [employer] MEDICAL CARD. 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
== END 2020-07-31 16:15 | disposition home or self-care (01) | DRG 177 ==
LOC: M.ERS 12:45 → M.2W 15:05 → M.TBA-ER 15:05 → M.2W 17:38 → M.ORTHSURG 07-28 12:05
PROVIDERS: Internal Medicine Critical Care Medicine; Personal Emergency Response Attendant; ADMIT Internal Medicine; ATTEND Internal Medicine
PROC: XW033E5 Introduction of Remdesivir Anti-infective into Peripheral Vein, Percutaneous Approach, New Technology Group 5 (ICD-10-PCS; principal; 2020-07-25)
DX: U07.1 COVID-19 (principal); G93.41 Metabolic encephalopathy; J12.89 Other viral pneumonia; J45.901 Unspecified asthma with (acute) exacerbation; E11.22 Type 2 diabetes mellitus with diabetic chronic kidney disease; I12.9 Hypertensive chronic kidney disease with stage 1 through stage 4 chronic kidney disease, or unspecified chronic kidney disease; N18.9 Chronic kidney disease, unspecified; Z79.84 Long term (current) use of oral hypoglycemic drugs; Z79.82 Long term (current) use of aspirin; Z79.899 Other long term (current) drug therapy; Z88.5 Allergy status to narcotic agent

== ENCOUNTER 2020-08-15 11:48 | Inpatient (IN) | payer OTHER ==
[~2020-08-15] VITALS: Ht 182.9 cm; Wt 72.0 kg
[~2020-08-15 11:48] MED LIST changes: +CEFDINIR300 MG PO; +FLORASTOR250 MG PO; +METFORMIN HCL500 M3 PO; +PREDNISONE 10 M10 MG PO; +ZETIA10 MG PO
[2020-08-15 11:50] VITALS: BP 120/82
[2020-08-15 12:04] LABS: ABSOLUTE EOSINOPHILS 0.1 thou/uL (0.0-0.7); ABSOLUTE LYMPHOCYTES 1.8 thou/uL (0.8-5.3); ABSOLUTE MONOCYTES 0.6 thou/uL (0.0-1.2); ABSOLUTE NEUTROPHILS 6.4 thou/uL (1.6-8.1); BASOPHILS 0.4 %; EOSINOPHILS 1.2 %; HEMATOCRIT 40.8 % (42.0-52.0); LYMPHOCYTES 20.1 %; MCH 30.4 pg (26.0-34.0); MCHC 34.3 g/dL (28.0-37.0); MCV 88.6 fL (80.0-100.0); MONOCYTES 6.3 %; MPV 7.9 fl. (7.2-11.1); NUCLEATED RBCS 0 /100WBC; PLATELET COUNT* 132 thou/uL (150-400); WBC 8.8 thou/uL (4.0-11.0)
[2020-08-15 12:17] LABS: APTT 21.6 Seconds (25.0-31.3); PROTIME 10.2 Seconds (9.20-11.50)
[2020-08-15 12:26] LABS: CALCIUM 8.2 mg/dL (8.5-10.1); CREATININE 1.3 mg/dL (0.6-1.3); POTASSIUM 3.7 mmol/L (3.5-5.1)
[2020-08-15 12:38] LABS: ALBUMIN 3.1 g/dL (3.4-5.0); TOTAL BILIRUBIN 0.9 mg/dL (<0.1-1.0); TOTAL PROTEIN 6.3 g/dL (6.4-8.2)
[2020-08-15 18:05] VITALS: BP 121/75
--- NOTE | 2020-08-15 18:42 | NUR ---
PT ORIENTED TO ROOM AND UNIT, TELE APPLIED, BED LOW AND LOCKED, SIDE RAILS UPX3, CALL LIGHT IN REACH. PT C/O OF ANXIETY AND SOA ALTHOUGH SATING ABOVE 92 PERCENT ON ROOM AIR. SEND MESSAGE TO DR. JUAREZ.
[2020-08-15 19:45] VITALS: BP 100/64
--- NOTE | 2020-08-15 20:00 | NUR ---
RECEIVED REPORT AND ASSUMED CARE OF PT, ASSESSMENT COMPLETED. HOB ELEVATED, PT VERY DYSPNIC, O2 SAT 100%. TELEMETRY ON SHOWING ST WITH RATE INTO 110'S, WITH ACTIVITY GOES TO 140'S. SEE ADMISSION ASSESSMENT AND HX. WILL CONT TO MONITOR AN ASSIST NEEDED
[2020-08-16] VITALS (7 sets, daily range): BP systolic 99–135; BP diastolic 42–85
[2020-08-16 04:37] LABS: CALCIUM 7.9 mg/dL (8.5-10.1); CREATININE 1.4 mg/dL (0.6-1.3); MAGNESIUM 2.1 mg/dL (1.8-2.4); POTASSIUM 4.3 mmol/L (3.5-5.1)
--- NOTE | 2020-08-16 05:31 | NUR ---
SLEPT WELL AFTER 0100. VERY DYSPNIC AND TACH WHEN AMBULATING. ENCOURAGED TO STAY IN BED. NO C/O CP OR OTHER DISCOMFORTS. TELEMETRY SHOWING ST. HS GOALS OF REST AND SAFETY ACHIEVED. HOURLY ROUNDING OBSERVED.
--- NOTE | 2020-08-16 09:04 | EKG ---
[place] [address] ELECTROCARDIOGRAM REPORT Name: PAGE PIERRE Room: [address] ADM IN M.R.#: [id number] Admission: 08/15/20 Attend Phys: Сергей Solorzano Discharge: Date of : 55 Date of Service: 08/15/20 1140 Report #: [id number] THIS REPORT FOR: //name// [facility] ED Test Date: 2020-08-15 Test Time: 11:40:59 Pat Name: PAGE PIERRE Department: Room: [facility] Gender: M Quality Control Inspector Heading: TP : 1955 Requested By: Elmer Fay Order Number: [id number] MD: Sohan Kaiser Measurements Intervals [place] Rate: 66 P: MS: QRS: 52 QRSD: 93 T: 60 QT: 415 QTc: 435 Interpretive Statements Atrial fibrillation Abnormal R-wave progression, early transition Borderline ST elevation, inferior leads No previous ECG available for comparison Electronically Signed On 08-16-2020 9:03:56 DAILY SALES AUDIT CLERK by Sohan Kaiser [email or web address] <ELECTRONICALLY SIGNED> By: Sara Kaiser MD, [facility] 08/16/20 0903 1140 1140 F. Sohan Kaiser MD, [facility] /EPI
--- NOTE | 2020-08-16 09:34 | NUR ---
CM COMPLETED THE INIITAL ASSESSMENT TO DISCUSS D/C PLANNING. PT IS A&O. ACTIVE AND INDEPENDENT W/ADLS. PT IS EMPLOYEED AT [employer]. PT DRIVES A VEHICLE. PT LIVES W/, DTR AND GRANDDTR. PT DENIES HX W/HH OR SNF. PT HAS 0 DME. NO CM NEEDS ANTICIPATED AT THIS TIME, PT DOESNT BELEIVE HE WANTS TO USE HH.
--- NOTE | 2020-08-16 19:44 | NUR ---
CARES PROVIDED FROM 0700 TO 1900. PT HAS BEEN FREE FROM RESPIRATORY DISTRESS BUT FATIGUES WITH MODERATE AMOUNT OF ACTIVITY. BEGUN ON SLIDING SCALE INSULIN RELATED TO HYPERGLYCEMIA. RECIEVED INSULIN WITH LUNCH AND DINNER MEALS. AT TIME OF THIS NOTE PT IS RESTING QUIETLY
[2020-08-17] VITALS (7 sets, daily range): BP systolic 97–110; BP diastolic 60–68
[2020-08-17 04:29] LABS: CALCIUM 8.7 mg/dL (8.5-10.1); CREATININE 1.2 mg/dL (0.6-1.3); MAGNESIUM 2.5 mg/dL (1.8-2.4); POTASSIUM 4.1 mmol/L (3.5-5.1)
[2020-08-17 04:42] LABS: HEMATOCRIT 30.6 % (42.0-52.0); MCH 30.7 pg (26.0-34.0); MCHC 35.5 g/dL (28.0-37.0); MCV 86.5 fL (80.0-100.0); MPV 8.3 fl. (7.2-11.1); RBC 3.54 mil/uL (4.50-6.00); RDW-CV 14.4 % (10.5-14.5); WBC 13.7 thou/uL (4.0-11.0)
[2020-08-17 05:04] LABS: HEMOGLOBIN 10.9 gm/dL (14.0-18.0)
--- NOTE | 2020-08-17 05:24 | NUR ---
ASSUMED PT CARE AT APPROX 1930. PT IS AWAKEW AND ORIENTED X4. PT IS TRACING SR/ST ON THE OTR TRUCK DRIVER. PT IS NOT IN DISTRESS. PT IS SHORT OF AIR WITHI ACTIVITIES, BUT NO DESATURATIONS NOTED. NO ACUTE CHANGES THIS SHIFT. CALL LIGHT WITHIN REACH. HOURLY ROUNDING DONE FOR PT SAFETY. FALL PRECAUTIONS IN PLACE.
[2020-08-17] MEDS ORDERED: PROAIR HFA8.5 GM INH (09:34)
[2020-08-17] MEDS ORDERED: XARELTO20 MG PO (09:34)
[2020-08-17] MEDS ORDERED: XARELTO15 MG PO (09:34)
--- NOTE | 2020-08-17 16:50 | NUR ---
DISCHARGED TO HOME. TAKEN OUT BY WEARING APPAREL PRESSER. THIS NURSE WENT DOWN AND PICKED UP HIS MEDICATION ORDER FROM PHARMACY. A&OX 4, LITTLE FORGETFUL. LUNGS CLEAR, HEART TONES REGULAR. +BS X 4 QUADS. IV LEFT FORARM TAKEN OUT THIS AM. GLUE WHEEL OPERATOR DC'D. SR ON MONITOR PRIOR TO DC. ALL BELONGINGS SENT HOME WITH PT. PT VERBALIZED UNDERSTANDING TO ALL DISCHARGE INSTRUCTIONS AND FOLLOW UP DOCTOR APPOINTMENTS. HOME WITH DAUGHTER. FMLA PAPERWORK SIGNED BY DOCTOR SUBHASH AND PT. COPY FAXED TO AND COPY ON CHART.
--- NOTE | 2020-08-17 16:54 | NUR ---
DISCHARGED AT 1630.
== END 2020-08-17 16:30 | disposition home or self-care (01) | DRG 176 ==
LOC: M.ERS 11:48 → M.TBA-ER 15:06 → M.2W 15:06
PROVIDERS: Family Medicine; Internal Medicine; ADMIT Internal Medicine; ATTEND Internal Medicine
DX: I26.99 Other pulmonary embolism without acute cor pulmonale (principal); E11.9 Type 2 diabetes mellitus without complications; F17.220 Nicotine dependence, chewing tobacco, uncomplicated; I10 Essential (primary) hypertension; J45.909 Unspecified asthma, uncomplicated; Z88.6 Allergy status to analgesic agent; Z83.3 Family history of diabetes mellitus; Z82.49 Family history of ischemic heart disease and other diseases of the circulatory system; Z79.899 Other long term (current) drug therapy

== ENCOUNTER 2020-10-05 09:14 | Emergency (ER) | payer OTHER ==
[~2020-10-05] VITALS: Ht 182.9 cm; Wt 81.7 kg
[~2020-10-05 09:14] MED LIST changes: +PROAIR HFA8.5 GM INH; +XARELTO15 MG PO; +XARELTO20 MG PO
[2020-10-05 09:48] LABS: ABSOLUTE EOSINOPHILS 0.2 thou/uL (0.0-0.7); ABSOLUTE LYMPHOCYTES 1.2 thou/uL (0.8-5.3); ABSOLUTE MONOCYTES 0.6 thou/uL (0.0-1.2); ABSOLUTE NEUTROPHILS 5.2 thou/uL (1.6-8.1); BASOPHILS 0.4 %; EOSINOPHILS 2.3 %; HEMATOCRIT 36.1 % (42.0-52.0); HEMOGLOBIN 12.4 gm/dL (14.0-18.0); LYMPHOCYTES 17.1 %; MCHC 34.3 g/dL (28.0-37.0); MCV 90.2 fL (80.0-100.0); MONOCYTES 8.3 %; MPV 7.8 fl. (7.2-11.1); NUCLEATED RBCS 0 /100WBC; PLATELET COUNT* 203 thou/uL (150-400); POLYS 71.9 %; RDW-CV 14.5 % (10.5-14.5); WBC 7.2 thou/uL (4.0-11.0)
[2020-10-05 09:57] LABS: CALCIUM 8.6 mg/dL (8.5-10.1); CREATININE 1.4 mg/dL (0.6-1.3); POTASSIUM 3.6 mmol/L (3.5-5.1)
[2020-10-05 10:02] LABS: ALBUMIN 3.4 g/dL (3.4-5.0); MAGNESIUM 2.1 mg/dL (1.8-2.4); TOTAL BILIRUBIN 0.7 mg/dL (<0.1-1.0); TOTAL PROTEIN 5.9 g/dL (6.4-8.2)
[2020-10-05] MEDS ORDERED: FLEXERIL PO (10:34)
[2020-10-05 12:15] VITALS: BP 118/61
--- NOTE | 2020-10-05 16:33 | EKG ---
[place] [address] ELECTROCARDIOGRAM REPORT Name: PAGE PIERRE Room: [facility]#: [id number] Admission: 10/05/20 Attend Phys: Discharge: 10/05/20 Date of : 55 Date of Service: 10/05/20922 Report #: [id number] THIS REPORT FOR: //name// [facility] ED Test Date: 2020-10-05 Test Time: 09:23:24 Pat Name: PAGE PIERRE Department: Room: Gender: Logistics Planner: [place] : 1955 Requested By: Luke Barfield Order Number: [id number] MD: Austen Cerda Measurements Intervals [place] Rate: 67 P: [place]: QRS: 37 QRSD: 96 T: 41 QT: 418 QTc: 442 Interpretive Statements Sinus rhythm Abnormal R-wave progression, early transition Baseline wander in lead(s) II,III,aVF Compared to ECG 08/15/2020 11:40:59 Rhythm is sinus in origin Electronically Signed On 10-05-2020 16:33:11 DRY HEAT CABINET ATTENDANT by Austen Cerda [email or web address] <ELECTRONICALLY SIGNED> By: Austen Cerda MD, [facility] 10/05/20 1633 0923 0923 Austen Cerda MD, [facility] /EPI
== END 2020-10-05 12:16 | disposition home or self-care (01) ==
LOC: M.ERS 09:14
PROVIDERS: Emergency Medicine Emergency Medical Services
DX: S16.1XXA Strain of muscle, fascia and tendon at neck level, initial encounter (principal); I10 Essential (primary) hypertension; E11.9 Type 2 diabetes mellitus without complications; J45.909 Unspecified asthma, uncomplicated; Z79.82 Long term (current) use of aspirin; Z79.84 Long term (current) use of oral hypoglycemic drugs; Z79.899 Other long term (current) drug therapy; Z88.5 Allergy status to narcotic agent; X58.XXXA Exposure to other specified factors, initial encounter; Y93.89 Activity, other specified; Y92.89 Other specified places as the place of occurrence of the external cause; Y99.8 Other external cause status

== ENCOUNTER 2020-10-13 09:00 | Emergency (ER) | payer OTHER ==
[~2020-10-13] VITALS: Ht 182.9 cm; Wt 83.9 kg
[~2020-10-13 09:00] MED LIST changes: +FLEXERIL PO
[2020-10-13] MEDS ORDERED: PREDNISONE50 MG PO (11:04)
[2020-10-13] MEDS ORDERED: HYDROCODON-ACE1 EAC7 PO (11:04)
[2020-10-13] MEDS ORDERED: FLEXERIL PO (11:04)
[2020-10-13 11:26] VITALS: BP 118/97
--- NOTE | 2020-10-13 15:11 | EKG ---
[place] [address] ELECTROCARDIOGRAM REPORT Name: GUIDO PIERRE Room: [facility]#: [id number] Admission: 10/13/20 Attend Phys: Discharge: 10/13/20 Date of : 55 Date of Service: 10/13/20 0949 Report #: [id number] THIS REPORT FOR: //name// [facility] ED Test Date: 2020-10-13 Test Time: 09:49:42 Pat Name: GUIDO PIERRE Department: Room: Gender: Insole Beveler: : 1955 Requested By: Luke Barfield Order Number: [id number] MD: Guido Elmore Measurements Intervals [place] Rate: 69 P: 57 ND: 179 QRS: 28 QRSD: 88 T: 34 QT: 413 QTc: 443 Interpretive Statements Sinus rhythm Abnormal R-wave progression, early transition Compared to ECG 10/05/2020 09:23:24 No significant changes Electronically Signed On 10-13-2020 15:11:27 CLEANER WALL by Guido Elmoer [email or web address] <ELECTRONICALLY SIGNED> By: Guido Elmore MD, [facility] 10/13/20 1511 0949 0949 Guido Elmore MD, [facility] /EPI
== END 2020-10-13 11:27 | disposition home or self-care (01) ==
LOC: M.ERS 09:00
DX: S46.912A Strain of unspecified muscle, fascia and tendon at shoulder and upper arm level, left arm, initial encounter (principal); I10 Essential (primary) hypertension; E11.9 Type 2 diabetes mellitus without complications; J45.909 Unspecified asthma, uncomplicated; Z79.82 Long term (current) use of aspirin; Z79.899 Other long term (current) drug therapy; Z88.5 Allergy status to narcotic agent; X58.XXXA Exposure to other specified factors, initial encounter; Y93.89 Activity, other specified; Y92.89 Other specified places as the place of occurrence of the external cause; Y99.8 Other external cause status

== ENCOUNTER → 2020-10-26 | Outpatient (CLI) | payer OTHER ==
[~2020-10-26] MED LIST changes: +HYDROCODON-ACE1 EAC7 PO; +PREDNISONE50 MG PO
== END ==
LOC: M.RAD 09:11
PROVIDERS: ATTEND Internal Medicine
DX: S71.141A Puncture wound with foreign body, right thigh, initial encounter (principal); M79.5 Residual foreign body in soft tissue; M22.2X2 Patellofemoral disorders, left knee; W45.8XXA Other foreign body or object entering through skin, initial encounter; Y93.89 Activity, other specified; Y92.89 Other specified places as the place of occurrence of the external cause; Y99.8 Other external cause status

== ENCOUNTER → 2020-11-14 | Outpatient (CLI) | payer OTHER | LOC: M.MRI 11:03 | PROVIDERS: ATTEND Internal Medicine | DX: I67.82 Cerebral ischemia (principal); R56.9 Unspecified convulsions; R46.89 Other symptoms and signs involving appearance and behavior; G31.1 Senile degeneration of brain, not elsewhere classified; G93.89 Other specified disorders of brain ==

== ENCOUNTER → 2020-11-18 | Outpatient (CLI) | payer OTHER | LOC: M.LAB 13:03 | PROVIDERS: ATTEND Psychiatry & Neurology Neuromuscular Medicine | DX: R41.3 Other amnesia (principal); Z86.59 Personal history of other mental and behavioral disorders ==

== ENCOUNTER → 2021-03-01 | Outpatient (CLI) | payer OTHER | LOC: M.RAD 17:14 | PROVIDERS: ATTEND Internal Medicine | DX: R06.00 Dyspnea, unspecified (principal) ==

== ENCOUNTER → 2021-09-21 | Outpatient (CLI) | payer OTHER ==
[2021-09-21 13:44] LABS: ABSOLUTE EOSINOPHILS 0.1 thou/uL (0.0-0.7); ABSOLUTE LYMPHOCYTES 1.2 thou/uL (0.8-5.3); ABSOLUTE MONOCYTES 0.5 thou/uL (0.0-1.2); ABSOLUTE NEUTROPHILS 6.5 thou/uL (1.6-8.1); BASOPHILS 0.2 %; EOSINOPHILS 1.4 %; HEMATOCRIT 39.1 % (42.0-52.0); HEMOGLOBIN 13.5 gm/dL (14.0-18.0); LYMPHOCYTES 14.3 %; MCH 31.1 pg (26.0-34.0); MCHC 34.6 g/dL (28.0-37.0); MCV 89.8 fL (80.0-100.0); MONOCYTES 5.5 %; MPV 7.5 fl. (7.2-11.1); NUCLEATED RBCS 0 /100WBC; PLATELET COUNT* 198 thou/uL (150-400); POLYS 78.6 %; RBC 4.35 mil/uL (4.50-6.00); RDW-CV 14.1 % (10.5-14.5); WBC 8.3 thou/uL (4.0-11.0)
[2021-09-21 13:51] LABS: ALBUMIN 3.7 g/dL (3.4-5.0); CALCIUM 8.6 mg/dL (8.5-10.1); CREATININE 1.4 mg/dL (0.6-1.3); POTASSIUM 4.3 mmol/L (3.5-5.1); TOTAL BILIRUBIN 0.5 mg/dL (<0.1-1.0); TOTAL PROTEIN 6.4 g/dL (6.4-8.2)
== END ==
LOC: M.LAB 13:13 → M.CT 14:00
PROVIDERS: ATTEND Internal Medicine
DX: N32.89 Other specified disorders of bladder (principal)

== ENCOUNTER → 2021-10-03 | Outpatient (CLI) | payer OTHER | LOC: M.ULTRA 10:07 | PROVIDERS: ATTEND Internal Medicine | DX: N28.89 Other specified disorders of kidney and ureter (principal); N30.90 Cystitis, unspecified without hematuria ==

== ENCOUNTER 2021-10-27 16:37 | Emergency (ER) | payer OTHER ==
[~2021-10-27] VITALS: Ht 182.9 cm; Wt 77.1 kg
[2021-10-27 16:42] VITALS: BP 142/72
[2021-10-27] MEDS ORDERED: HYDROCODON-ACE1 EAC7 PO (19:13)
== END 2021-10-27 19:18 | disposition home or self-care (01) ==
LOC: M.ERS 16:37
DX: M25.552 Pain in left hip (principal); M54.50 Low back pain, unspecified; E11.9 Type 2 diabetes mellitus without complications; I10 Essential (primary) hypertension; J45.909 Unspecified asthma, uncomplicated; Z79.899 Other long term (current) drug therapy; Z79.82 Long term (current) use of aspirin; Z88.5 Allergy status to narcotic agent; W00.0XXA Fall on same level due to ice and snow, initial encounter; Y93.89 Activity, other specified; Y92.89 Other specified places as the place of occurrence of the external cause; Y99.8 Other external cause status